=== PATIENT | female | born 1975 | race Caucasian/White ===

== ENCOUNTER 2023-12-03 06:00 | Day surgery (SDC) | payer BC ==
[2023-11-29 13:30] VITALS: BP 143/100
[~2023-12-03] VITALS: Ht 172.7 cm; Wt 109.1 kg
[~2023-12-03 06:00] MED LIST: AMITRIPTYLINE H10 MG PO; LACTATED RINGER'S 1,000 ML IV SCH; OSTERA TABLET1 EACH PO; VENTOLIN HFA18 GM; ZYRTEC10 MG PO
[2023-12-03 06:12] VITALS: BP 136/85
[2023-12-03] MEDS ORDERED: KETOROLAC TROMETHAMINE 30 MG/ML VIAL ONE (06:58)
[2023-12-03] MEDS ORDERED: fentaNYL citrate 100 MCG/2 ML VIAL ONE (06:58)
[2023-12-03] MEDS ORDERED: ondansetron HCL 4 MG/2 ML VIAL ONE (06:58)
[2023-12-03] MEDS ORDERED: DEXAMETHASONE SOD PHOS 4 MG/ML VIAL ONE (06:58)
[2023-12-03] MEDS ORDERED: MIDAZOLAM HCL 2 MG/2 ML VIAL ONE (06:58)
[2023-12-03] MEDS ORDERED: ACETAMINOPHEN 1,000 MG/100 ML VIAL ONE (06:58)
[2023-12-03] MEDS ORDERED: LIDOCAINE HCL 2% 5 ML SDV ONE (06:58)
[2023-12-03] MEDS ORDERED: propofoL 200 MG/20 ML VIAL ONE ×2 (06:58→07:30)
[2023-12-03] MEDS ORDERED: IBLOOD GLUCOSE TEST STRIP 1 EA TEST VI PRN ×2 (07:00→07:30)
[2023-12-03] MEDS ORDERED: LIDOCAINE HCL 1% 5 ML SDV INJ ONE (07:00)
[2023-12-03] MEDS ORDERED: METOCLOPRAMIDE HCL 10 MG/2 ML SDV IV SCH (07:00)
[2023-12-03] MEDS ORDERED: FAMOTIDINE 20 MG/ 2 ML VIAL IV SCH (07:00)
[2023-12-03] MEDS ORDERED: ondansetron HCL 4 MG/2 ML VIAL IV PRN ×2 (07:30→08:00)
[2023-12-03] MEDS ORDERED: fentaNYL citrate 100 MCG/2 ML VIAL IV PRN (07:30)
[2023-12-03] MEDS ORDERED: HYDROmorphone HCL 1 MG/ML SYR IV PRN (07:30)
[2023-12-03] MEDS ORDERED: droPERidol 5 MG/2 ML VIAL IV PRN (07:30)
[2023-12-03] MEDS ORDERED: NALOXONE HCL 0.4 MG SYR IV PRN (07:30)
[2023-12-03] MEDS ORDERED: PROCHLORPERAZINE EDISYLATE 10 MG/2 ML VIAL IV PRN ×2 (07:30→08:00)
[2023-12-03] MEDS ORDERED: LACTATED RINGER'S 1,000 ML IV SCH (08:00)
[2023-12-03] MEDS ORDERED: MAGNESIUM HYDROXIDE/AL HYDROX 30 ML CUP PO PRN (08:00)
[2023-12-03] MEDS ORDERED: HYDROCODONE/ACETA 5/325 TAB PO PRN (08:00)
[2023-12-03] MEDS ORDERED: ondansetron HCL 4 MG TAB PO PRN (08:00)
[2023-12-03] MEDS ORDERED: IBUPROFEN 800 MG TAB PO PRN (08:00)
[2023-12-03] MEDS ORDERED: FAMOTIDINE 20 MG TAB PO PRN (08:00)
--- NOTE | 2023-12-03 08:13 | NUR ---
12/03/23 0813 Nicolette Angeles 0745 PT ARRIVED IN PACU NON RESPONSIVE TO NOXIOUS STIMULI WITH OPA IN PLACE. 0746 PT REACTIVE. OPA REMOVED BY START UP SPECIALIST. 0800 PT RESTING. REU. 0810 AWAKE AND SIPPING ON WATER. NO C/O'S.
[2023-12-03 08:16] VITALS: BP 125/83
--- NOTE | 2023-12-04 11:06 | PATH ---
[facility] [address] [place], [place] [address] Signed SPECIMEN(S): A ENDOMETRIAL POLYPS SPECIMEN SOURCE: A. ENDOMETRIAL POLYPS CLINICAL HISTORY: Menorrhagia, intramural uterine fibroid FINAL PATHOLOGIC DIAGNOSIS: Endometrium, polypectomies: - Interval phase endometrium with benign endometrial polyps; no hyperplasia or neoplasia identified BRP MICROSCOPIC EXAMINATION: Histologic sections of all submitted blocks are examined by light microscopy. These findings, together with the gross examination, support the pathologic diagnosis. GROSS DESCRIPTION: The specimen, labeled and designated "Velho, endometrial polyps," is received in formalin and consists of multiple fragments of red-pink to novoa soft tissue (10.3 x 2.1 x 0.5 cm in aggregate). The specimen is submitted entirely in cassette (A1-A4). VB (under the direct supervision of a pathologist) The Gross Description was prepared using a voice recognition system. The report was reviewed for accuracy; however, sound-alike word errors, addition and/or deletions may occur. If there is any question about this report, please contact Client Services. ADDITIONAL NOTES: Immunohistochemical and/or in situ hybridization studies if performed in this case included appropriate positive controls that reacted as expected. This test was developed and its performance characteristics determined by [facility]. It has not been cleared or approved by the U.S. Food and Drug Administration. The FDA has determined that such clearance or approval is not necessary. This test is used for clinical purposes. It should not be regarded as investigational or for research. [facility] is certified under the Clinical Laboratory Improvement Amendments of 1988 (CLIA) as qualified to perform high complexity clinical PATIENT NAME: SADE QUEEN PATHOLOGY DATE OF : 71 REPORT #: [id number] PHYSICIAN: HUMA BHANDARI PCP: FERMIN OLIVAREZ PA-C REPORT IS CONFIDENTIAL AND NOT TO BE RELEASED WITHOUT AUTHORIZATION [facility] [address] [place] [address] [place], [place] [address] Signed laboratory testing. PERFORMING LABORATORY: Technical component was performed by [facility], [address] [place] [address] (CLIA# [id number]). Professional interpretation was performed by [facility] [address] [place] [id number] Diagnostician: Dmitri Whitfield MD Pathologist Electronically Signed 12/04/2023 Copies: ~ PATIENT NAME: SADE QUEEN PATHOLOGY DATE OF : 71 REPORT #: [id number] PHYSICIAN: HUMA BHANDARI PCP: FERMIN OLIVAREZ PA-C REPORT IS CONFIDENTIAL AND NOT TO BE RELEASED WITHOUT AUTHORIZATION
--- NOTE | 2023-12-06 07:54 | OR ---
[facility] [address] [place], [place] [address] Signed DATE OF OPERATION: 12/03/2023 SURGEON: Violeta Peña MD PREOPERATIVE DIAGNOSES: Uterine fibroids, endometrial polyp, menorrhagia. POSTOPERATIVE DIAGNOSES: Uterine fibroids, endometrial polyp, menorrhagia. PROCEDURE: Hysteroscopy resection of polyps. ANESTHESIA: MAC. ESTIMATED BLOOD LOSS: Minimal. DRAINS: None. INDICATIONS AND FINDINGS: The patient is a 47-year-old female who has a long history of menorrhagia. She also has known fibroids. Recent ultrasound showed probable polyps as well. At the time of surgery, exam under anesthesia revealed a uterus approximately 14 week size, slightly irregular. The cavity sounded to 13 cm. Evaluation of the cavity revealed multiple polyps. PROCEDURE IN DETAIL: The patient was prepped and draped in the dorsal lithotomy position. A weighted speculum was placed. The anterior lip of the cervix was visualized and grasped with a single-tooth tenaculum. The cavity was sounded to 13 cm. The endocervical canal was then dilated to a #8 dilator. The MyoSure device was placed and the cavity evaluated. The MyoSure Lite was then introduced as there were multiple polyps. This was used to resect the polyps completely. They were over the anterior as well as the posterior lateral wall. Following this, the cavity appeared to be fairly regular and clean. The procedure was then terminated. Instruments removed and the cervix evaluated. There was initially a little bleeding from the left hand tenaculum site and this was controlled with a ring forcep and pressure. Following this, there was no evidence of any active Electronically Signed By: VIOLETA PEÑA MD 12/06/23 0754 PATIENT NAME: SADE QUEEN OPERATIVE REPORT DATE OF : 71 REPORT #: [id number] PHYSICIAN: VIOLETA PEÑA MD PCP: FERMIN OLIVAREZ PA-C REPORT IS CONFIDENTIAL AND NOT TO BE RELEASED WITHOUT AUTHORIZATION [facility] [address] [place] [id number] Signed bleeding and the procedure terminated. All sponge and needle counts were correct. The patient was taken to the recovery room in good condition. Violeta Peña MD PJW/MODL /[id number] Copies: ~ Electronically Signed By: VIOLETA PEÑA MD 12/06/23 0754 PATIENT NAME: SADE QUEEN OPERATIVE REPORT DATE OF : 71 REPORT #: [id number] PHYSICIAN: VIOLETA PEÑA MD PCP: FERMIN OLIVAREZ PA-C REPORT IS CONFIDENTIAL AND NOT TO BE RELEASED WITHOUT AUTHORIZATION
== END 2023-12-03 08:25 | disposition home or self-care (01) ==
LOC: OPS 06:00 → DS 06:00 → OPS 07:30
PROVIDERS: ATTEND Obstetrics & Gynecology
PROC: 0UB98ZZ Excision of Uterus, Via Natural or Artificial Opening Endoscopic (ICD-10-PCS; principal; 2023-12-03 07:30)
DX: N84.0 Polyp of corpus uteri (principal); D25.9 Leiomyoma of uterus, unspecified; N92.0 Excessive and frequent menstruation with regular cycle; F32.9 Major depressive disorder, single episode, unspecified; K58.9 Irritable bowel syndrome, unspecified; D50.0 Iron deficiency anemia secondary to blood loss (chronic); Z88.1 Allergy status to other antibiotic agents; Z88.8 Allergy status to other drugs, medicaments and biological substances
CPT/HCPCS: 00952; 84703; J0131; J1100; J1885; J2001; J2250; J2405; J2704; J2765; J3010; J7121